=== PATIENT | male | born 1995 | race Caucasian/White ===

== ENCOUNTER 2022-10-23 23:02 | Emergency (ER) | payer OTHER ==
[~2022-10-23] VITALS: Ht 177.8 cm; Wt 79.4 kg
[2022-10-23 23:04] VITALS: BP 134/81
--- NOTE | 2022-10-23 23:04 | NUR ---
[facility] ALS TO BED #7
--- NOTE | 2022-10-23 23:11 | NUR ---
Dr. Villela examining patient.
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
--- NOTE | 2022-10-23 23:26 | NUR ---
PT AWAKE AND ALERT. ASKING FOR CELLPHONE TO PHONE HIS MOTHER. ANSWERING QUESTIONS APPROPIATELY
[2022-10-23] MEDS ORDERED: NACL 0.9% 1,000 ML IV ONE (23:50)
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
[2022-10-24] MEDS ORDERED: NACL 0.9% 1,000 ML IV ONE (00:55)
[2022-10-24 02:38] VITALS: BP 128/85
--- NOTE | 2022-10-24 02:41 | NUR ---
Patient discharged with v/s stable by ermd. Written and verbal after care instructions given and explained. Patient verbalized understanding. Ambulatory with steady gait. All questions addressed prior to discharge. Advised to follow up with PMD.
== END 2022-10-24 02:41 | disposition home or self-care (01) ==
LOC: MED 23:02
DX: T39.1X4A Poisoning by 4-Aminophenol derivatives, undetermined, initial encounter (principal); T40.2X4A Poisoning by other opioids, undetermined, initial encounter; T42.4X4A Poisoning by benzodiazepines, undetermined, initial encounter; T62.0X4A Toxic effect of ingested mushrooms, undetermined, initial encounter; J45.909 Unspecified asthma, uncomplicated; Y92.89 Other specified places as the place of occurrence of the external cause
CPT/HCPCS: 96360; 96361; 99283; J7030